=== PATIENT | female | born 2000 | race Caucasian/White ===

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

== ENCOUNTER 2024-09-10 20:53 | Emergency (ER) | payer BC, OTHER ==
[2024-09-10 21:19] VITALS: TEMP 98.5
--- NOTE | 2024-09-10 22:15 | ED ---
Female Urogenital HPI - General Source: patient Mode of arrival: ambulatory Limitations: no limitations - History of Present Illness Last Menstrual Period: 09/09/24 <Radha Cruz - Last Filed: 09/10/24 22:15> - General Source: patient, RN notes reviewed <Talia Lanza - Last Filed: 09/11/24 02:23> - General Chief complaint: Vaginal Bleeding Stated complaint: Vaginal bleeding Time Seen by Provider: 09/10/24 22:15 - History of Present Illness Initial comments: Quick note: 24-year-old female presented with chief complaint of heavy vaginal bleeding. Patient reports that she has not had a regular period in 1 year. She reports that she would get some light spotting each month but it was not consistent with the amount of bleeding that she was used to. Today she started having heavy menstrual bleeding, she reports that she is gone through 10 tampons today as well as a few pads. She denies . (Radha Cruz) 24-year-old female presenting for chief complaint of heavy vaginal bleeding x 1 day. States she has not had a regular period in over 1 year and she would exper ience light spotting approximately once a month. States she woke up last night with heavy vaginal bleeding and abdominal cramping that she rates about a 5 out of 10. Denies chance of . Denies fevers, nausea, vomiting, diarrhea. Denies hormone replacement therapy. States she was diagnosed with PCOS in high school. (Talia aLnza) - Related Data Allergies Allergy/AdvReac Type Severity Reaction Status Date / Time No Known Allergies Allergy Verified 09/10/24 21:19 Review of Systems ROS Other: All systems not noted in ROS Statement are negative. <Radha Cruz - Last Filed: 09/10/24 22:15> ROS Other: All systems not noted in ROS Statement are negative. <Talia Lanza - Last Filed: 09/11/24 02:23> ROS Statement: Those systems with pertinent positive or pertinent negative responses have been documented in the HPI. Past Medical History Past Medical History: No Reported History History of Any Multi-Drug Resistant Organisms: None Reported Past Surgical History: Appendectomy, Section, Tonsillectomy Past Psychological History: No Psychological Hx Reported Smoking Status: Never smoker Past Alcohol Use History: None Reported Past Drug Use History: None Reported <Radha Cruz - Last Filed: 09/10/24 22:15> General Exam Limitations: no limitations <Radha Cruz - Last Filed: 09/10/24 22:15> General appearance: alert, in no apparent distress Head exam: Present: atraumatic, normocephalic, normal inspection Eye exam: Present: normal appearance, PERRL, EOMI. Absent: scleral icterus, conjunctival injection, periorbital swelling GI/Abdominal exam: Present: soft, normal bowel sounds. Absent: distended, tenderness, guarding, rebound, rigid Neurological exam: Present: alert, oriented X3 Psychiatric exam: Present: normal affect, normal mood Skin exam: Present: warm, dry, intact, normal color. Absent: rash <Talia Lanza - Last Filed: 09/11/24 02:23> - General Exam Comments Initial Comments: Visual Physical Exam Vital signs reviewed General: Well-appearing, nontoxic, no acute distress. Head: Normocephalic, atraumatic Eyes: PERRLA, EOMI ENT: Airway patent Chest: Nonlabored breathing Skin: No visual rash, normal skin tone Neuro: Alert and oriented 3 Musculoskeletal: No gross abnormalities (Radha Cruz) Course Vital Signs 09/10/24 09/11/24 21:15 02:12 Temperature 98.5 F Pulse Rate 67 72 Respiratory 22 18 Rate Blood Pressure 117/74 116/84 O2 Sat by Pulse 100 100 Oximetry Medical Decision Making <Radha Cruz - Last Filed: 09/10/24 22:15> - Lab Data Result diagrams: 09/10/24 22:25 09/10/24 22:25 <Talia Lanza - Last Filed: 09/11/24 02:23> - Medical Decision Making I performed the quick note portion of this visit, electronically signed Radha Cruz PA-C (Radha Cruz) Was pt. sent in by a medical professional or institution (BOAZ Abraham, SANITATION MANAGER, urgent care, hospital, or detention...) When possible be specific @ -No Did you speak to anyone other than the patient for history (EMS, parent, family, police, friend...)? What history was obtained from this source @ -No Did you review nursing and triage notes (agree or disagree)? Why? @ -I reviewed and agree with nursing and triage notes Were old charts reviewed (outside hosp., previous admission, EMS record, old EKG, old radiological studies, urgent care reports/EKG's, detention records)? Report findings @ -No old charts were reviewed Differential Diagnosis (chest pain, altered mental status, abdominal pain women, abdominal pain men, vaginal bleeding, weakness, fever, dyspnea, syncope, headache, dizziness, GI bleed, back pain, seizure, CVA, palpatations, mental health, musculoskeletal)? @ -Differential Vaginal Bleeding: Spontaneous , threatened , molar , ectopic , bloody show, incompetent cervix, abruptioplacenta, placenta previa, uterine rupture, dysfunctional uterine bleeding, hemorrhage, uterine fibroids, this is not meant to be an all-inclusive list. EKG interpreted by me (3pts min.). @ -None X-rays interpreted by me (1pt min.). @ -None done CT interpreted by me (1pt min.). @ -None done U/S interpreted by me (1pt. min.). @ -Pelvic ultrasound reveals endometrial stripe prominent measuring 1.5 cm in thickness, no abnormal vascular flow or obvious focal abnormality is identified, no fluid in endometrial canal What testing was considered but not performed or refused? (CT, X-rays, U/S, labs)? Why? @ -None What meds were considered but not given or refused? Why? @ -None Did you discuss the management of the patient with other professionals (professionals i.e. , PA, SANITATION MANAGER, lab, RT, psych nurse, manager social work, pneumatic tube fitter, teacher, military police officer, case management assistant)? Give summary @ -No Was smoking cessation discussed for >3mins.? @ -No Was critical care preformed (if so, how long)? @ -No Were there social determinants of health that impacted care today? How? (Homelessness, low income, unemployed, alcoholism, drug addiction, transportation, low edu. Level, literacy, decrease access to med. care, nursing home, rehab)? @ -No Was there de-escalation of care discussed even if they declined (Discuss DNR or withdrawal of care, Hospice)? DNR status @ -No What co-morbidities impacted this encounter? (DM, HTN, Smoking, COPD, CAD, Cancer, CVA, ARF, Chemo, Hep., AIDS, mental health diagnosis, sleep apnea, morbid obesity)? @ -None Was patient admitted / discharged? Hospital course, mention meds given and route, prescriptions, significant lab abnormalities, going to OR and other pertinent info. @ -Discharge. 24-year-old female presenting for menorrhagia x 1 day. Patient is well-appearing, no acute distress. Vital signs within acceptable limits. Abdomen soft and nonsurgical. Provided with Toradol for abdominal cramping. Lab work unremarkable, normal hemoglobin of 12.7. Pelvic ultrasound reveals endometrial stripe prominent measuring 1.5 cm in thickness, no abnormal vascular flow or obvious focal abnormality is identified, no fluid in endometrial canal. Results discussed with patient. Patient can be safely discharged home with close gynecology follow-up. Patient states she has a appointment with her sheet rock hanger in 1 week. Appropriate return precautions discussed. Case was discussed with my ED attending Dr. Smith. Undiagnosed new problem with uncertain prognosis? @ -No Drug Therapy requiring intensive monitoring for toxicity (Heparin, Nitro, Insulin, Cardizem)? @ -No Were any procedures done? @ -No Diagnosis/symptom? @ -Menorrhagia Acute, or Chronic, or Acute on Chronic? @ -Acute Uncomplicated (without systemic symptoms) or Complicated (systemic symptoms)? @ -Uncomplicated Side effects of treatment? @ -No Exacerbation, Progression, or Severe Exacerbation? @ -No Poses a threat to life or bodily function? How? (Chest pain, [place], [place], pneumonia, PE, COPD, DKA, ARF, appy, cholecystitis, CVA, Diverticulitis, Homicidal, Suicidal, threat to staff... and all critical care pts) @ -No (Talia Lanza) - Lab Data Lab Results 09/10/24 09/10/24 09/10/24 Range/Units 22:25 22:25 : WBC 6.81 (4.50-10.00) 10*3/uL RBC 4.54 (4.10-5.20) 10*6/uL Hgb 12.7 (12.0-15.0) g/dL Hct 37.3 (37.2-46.3) % MCV 82.2 (80.0-97.0) fL MCH 28.0 (27.0-32.0) pg MCHC 34.0 (32.0-37.0) g/dL Plt Count 273 (140-440) 10*3/uL MPV 10.6 (9.5-12.2) fL Immature Gran % (Auto) 0.3 % Neutrophils % 44.9 % Lymphocytes % 44.9 % Monocytes % 8.5 % Eosinophils % 1.0 % Basophils % 0.4 % Immature Gran # 0.02 (0.00-0.04) 10*3/uL Neutrophils # 3.05 (1.80-7.70) 10*3/uL Lymphocytes # 3.06 (0.90-5.00) 10*3/uL Monocytes # 0.58 (0.20-1.00) 10*3/uL Eosinophils # 0.07 (0.04-0.35) 10*3/uL Basophils # 0.03 (0.00-0.10) 10*3/uL PT 10.7 (10.0-12.5) sec INR 1.0 (<1.2) APTT 25.5 (22.0-30.0) sec Sodium 140 (137-145) mmol/L Potassium 4.0 (3.5-5.1) mmol/L Chloride 104 (98-107) mmol/L Carbon Dioxide 25 (22-30) mmol/L Anion Gap 11 mmol/L BUN 9 (7-17) mg/dL Creatinine 0.72 (0.52-1.04) mg/dL Est GFR (CKD-EPI)AfAm >90 (>60 ml/min/1.73 sqM) Est GFR (CKD-EPI)NonAf >90 (>60 ml/min/1.73 sqM) Glucose 91 (74-99) mg/dL Calcium 9.2 (8.4-10.2) mg/dL Total Bilirubin 0.4 (0.2-1.3) mg/dL AST 21 (14-36) U/L ALT 15 (4-34) U/L Alkaline Phosphatase 87 (38-126) U/L Total Protein 7.3 (6.3-8.2) g/dL Albumin 4.4 (3.5-5.0) g/dL Urine Color Urine Appearance (Clear) Urine RBC (0-5) /hpf Urine Mucus (None) /hpf Urine HCG, Qual (Not Detectd) 09/11/24 09/11/24 Range/Units 00:32 00:32 WBC (4.50-10.00) 10*3/uL RBC (4.10-5.20) 10*6/uL Hgb (12.0-15.0) g/dL Hct (37.2-46.3) % MCV (80.0-97.0) fL MCH (27.0-32.0) pg MCHC (32.0-37.0) g/dL Plt Count (140-440) 10*3/uL MPV (9.5-12.2) fL Immature Gran % (Auto) % Neutrophils % % Lymphocytes % % Monocytes % % Eosinophils % % Basophils % % Immature Gran # (0.00-0.04) 10*3/uL Neutrophils # (1.80-7.70) 10*3/uL Lymphocytes # (0.90-5.00) 10*3/uL Monocytes # (0.20-1.00) 10*3/uL Eosinophils # (0.04-0.35) 10*3/uL Basophils # (0.00-0.10) 10*3/uL PT (10.0-12.5) sec INR (<1.2) APTT (22.0-30.0) sec Sodium (137-145) mmol/L Potassium (3.5-5.1) mmol/L Chloride (98-107) mmol/L Carbon Dioxide (22-30) mmol/L Anion Gap mmol/L BUN (7-17) mg/dL Creatinine (0.52-1.04) mg/dL Est GFR (CKD-EPI)AfAm (>60 ml/min/1.73 sqM) Est GFR (CKD-EPI)NonAf (>60 ml/min/1.73 sqM) Glucose (74-99) mg/dL Calcium (8.4-10.2) mg/dL Total Bilirubin (0.2-1.3) mg/dL AST (14-36) U/L ALT (4-34) U/L Alkaline Phosphatase (38-126) U/L Total Protein (6.3-8.2) g/dL Albumin (3.5-5.0) g/dL Urine Color Red Urine Appearance Bloody H (Clear) Urine RBC >182 H (0-5) /hpf Urine Mucus Moderate H (None) /hpf Urine HCG, Qual Not Detected (Not Detectd) Disposition <Radha Cruz - Last Filed: 09/10/24 22:15> Is patient prescribed a controlled substance at d/c from ED?: No Time of Disposition: 02:05 <Talia Lanza - Last Filed: 09/11/24 02:23> Clinical Impression: Menorrhagia Disposition: HOME SELF-CARE Condition: Stable Instructions (If sedation given, give patient instructions): Menorrhagia (ED) Additional Instructions: Follow-up for your gynecology appointment on the . Please return to the Emergency Department if symptoms worsen or any other concerns. Referrals: Rocael Porter DO [Primary Care Provider] - 1-2 days
[2024-09-10 22:33] LABS: Basophils # (A) 0.03 10*3/uL (0.00-0.10); Basophils % (A) 0.4 %; Eosinophils # (A) 0.07 10*3/uL (0.04-0.35); Eosinophils % (A) 1.0 %; HCT 37.3 % (37.2-46.3); HGB 12.7 g/dL (12.0-15.0); Lymphocytes # (A) 3.06 10*3/uL (0.90-5.00); Lymphocytes % (A) 44.9 %; MCH 28.0 pg (27.0-32.0); MCHC 34.0 g/dL (32.0-37.0); MCV 82.2 fL (80.0-97.0); Monocytes # (A) 0.58 10*3/uL (0.20-1.00); Monocytes % (A) 8.5 %; Neutrophils # (A) 3.05 10*3/uL (1.80-7.70); Neutrophils % (A) 44.9 %; Platelet Count 273 10*3/uL (140-440); RBC 4.54 10*6/uL (4.10-5.20); RDW 13.4 % (11.5-14.5); WBC 6.81 10*3/uL (4.50-10.00)
[2024-09-10 22:42] LABS: INR 1.0 (<1.2); Partial Thromboplastin Time 25.5 sec (22.0-30.0); Prothrombin Time 10.7 sec (10.0-12.5)
[2024-09-10 23:01] LABS: ALT 15 U/L (4-34); AST 21 U/L (14-36); African American GFR (CKD) >90 (>60 ml/min/1.73 sqM); Albumin 4.4 g/dL (3.5-5.0); Alkaline Phosphatase 87 U/L (38-126); Anion Gap 11 mmol/L; Blood Urea Nitrogen 9 mg/dL (7-17); Calcium 9.2 mg/dL (8.4-10.2); Carbon Dioxide 25 mmol/L (22-30); Chloride 104 mmol/L (98-107); Glucose 91 mg/dL (74-99); Non-African American GFR(CKD) >90 (>60 ml/min/1.73 sqM); Potassium 4.0 mmol/L (3.5-5.1); Sodium 140 mmol/L (137-145); Total Protein 7.3 g/dL (6.3-8.2)
[2024-09-11] MEDS: KETOROLAC 15 MG/ML 1 ML VIAL IVP STA (00:27)
--- NOTE | 2024-09-11 00:38 | US ---
EXAM: US Pelvis Transabdominal and Transvaginal, Complete CLINICAL HISTORY: ITS.REASON US Reason: bleeding TECHNIQUE: Real-time complete transabdominal and transvaginal pelvic ultrasound with image documentation. Transvaginal imaging was used for better evaluation of the endometrium and adnexa. COMPARISON: No relevant prior studies available. FINDINGS: Uterus/cervix: The uterus measures 9.7 x 4.3 x 5.1 cm. The endometrial stripe measures 1.5 cm in thickness. No abnormal vascular flow or obvious focal abnormality identified. No fluid in the endometrial canal. No myometrial mass. Right ovary: Unremarkable. Normal blood flow. The right ovary measures 3.8 x 1.9 x 2.2 cm. Left ovary: Unremarkable. Normal blood flow. The left ovary measures 2.5 x 1.8 x 1.8 cm. Free fluid: No free fluid. Bladder: Unremarkable as visualized. Wall is normal thickness for degree of distention. IMPRESSION: 1. The endometrial stripe is prominent, measuring 1.5 cm in thickness. No abnormal vascular flow or obvious focal abnormality identified. No fluid in the endometrial canal. 2. Otherwise negative pelvic sonographic evaluation.
[2024-09-11 01:01] LABS: Color,Urine Red
[2024-09-11 01:10] LABS: RBC,Urine >182 /hpf (0-5)
[2024-09-11 01:11] LABS: Mucus,Urine Moderate /hpf
[2024-09-11 02:13] VITALS: BP 116/84; PULSE 72; RESP 18
== END 2024-09-11 02:13 | disposition home or self-care (01) ==
LOC: EC 20:53
DX: N92.0 Excessive and frequent menstruation with regular cycle (principal)
CPT/HCPCS: 36415; 76830; 80053; 81001; 81025; 85025; 85610; 85730; 87086; 93975; 96374; 99284